=== PATIENT | female | born 1955 ===

== ENCOUNTER 2018-10-15 07:02 | Emergency (ER) | payer BC, MEDICARE, OTHER ==
--- NOTE | 2018-10-15 07:38 | UC ---
General HPI - HPI Summary HPI Summary: Pt present to with 3 weeks progressive poly arthralgia. Pt states discomfort primarily in left ankle but also in knees and right hip. No fall, no trauma. LLE with increased swelling and mild erythema. No fever chills. No rash. Pt taking ibuprofen 600mg with short term relief. Pt elevated LE which help swelling No travel no know tick bite. Pt states she has seen her PCP Dr. Salcido several times for this - has had blood work - unknown what tested but does say lyme neg Pt also reports she was put on unknown medication for gout ( sounds like pred taper as describes a 5-6 days tapering dose.) Pt states her PCP has done xrays and an ultrasound (2 weeks ago) but leg getting more swollen and painful. Pt saw PCP on Thu - she is not on vacation for 10 days so came to medications reviewed - History of Current Complaint Chief Complaint: UCLowerExtremity Stated Complaint: JOINT PAIN Time Seen by Provider: 10/15/18 07:28 Pain Intensity: 8 - Allergy/Home Medications Allergies/Adverse Reactions: Allergies Allergy/AdvReac Type Severity Reaction Status Date / Time ampicillin Allergy Shakes Verified 10/15/18 07:19 Home Medications: Home Medications FLUoxetine CAP* [PROzac CAP*] 10 mg PO DAILY 10/15/18 [History Confirmed ] Levothyroxine TAB* [Synthroid TAB*] 25 mcg PO 0800 10/15/18 [History Confirmed 10/15/18] [place]cano Carbonate TAB* 300 mg PO DAILY 10/15/18 [History Confirmed 10/15/18] Zolpidem TAB* [Ambien TAB*] 5 mg PO BEDTIME PRN 10/15/18 [History Confirmed ] PMH/Surg Hx/FS Hx/Imm Hx Previously Healthy: Yes Psychological History: Bipolar Disorder - Surgical History Surgical History: None - Family History Known Family History: Positive: Non-Contributory - Social History Occupation: Retired Lives: With Family Alcohol Use: None Substance Use Type: None Smoking Status (MU): Never Smoked Tobacco Review of Systems All Other Systems Reviewed And Are Negative: Yes Constitutional: Negative: Fatigue Skin: Positive: Other - swelling LLE Musculoskeletal: Positive: Arthralgia Is Patient Immunocompromised?: No Physical Exam - Summary Physical Exam Summary: Vital Signs Reviewed: Yes A+Ox3, no distress, ambulatory with slight limp Eyes: Conjunctiva Clear, PATRICIA. EOM intact and full ENT: Hearing grossly normal TM x 2 clear, mmoist, uvula midline, no exudate, no erythema Neck: Positive: Supple Respiratory: Positive: No respiratory distress, No accessory muscle use + CTA throughout no w/r Cardiovascular: RRR nl s1, s2 no m/r CBT <2 sec + dP, PT + 2+ edema LLE midcalf to midfoot abd soft + BS nt/nd no guarding, no distension Musculoskeletal Exam: BROWN x 4 without difficulty Strength Intact, ROM Intact + SLE + flex/ext knee, ankle great toe + TTP with palp medial aspect left ankle and base 1st MT Neurological: Positive: Alert, + sensation throughout ambulatory with slight limp + grosss sensation throughout b/l LE Psychological: Positive: Normal Response To Family Skin: Positive: LLE midcalf to mid foot + edema, mild warmth, mild erythema no lesios Triage Information Reviewed: Yes Vital Signs: Initial Vital Signs Temp 98.4 F 10/15/18 07:09 Pulse 63 10/15/18 07:09 Resp 16 10/15/18 07:09 BP 177/81 10/15/18 07:09 Pulse Ox 98 10/15/18 07:09 Course/Dx - Course Course Of Treatment: Patient presents to urgent care with three-way progressive poly-articular arthralgias. Patient has seen her PCP several times for this. Patient reports she's had recommended imaging studies without a clear diagnosis. Patient was put on medication for treatment of gout. Patient has not nobody uric acid level. Patient did saline level is negative. Patient states he has not checked a lithium level. Patient states her left lower extremity continues to be swollen and painful. Patient states it seems is getting worse. Patient takes ibuprofen was short-term relief. Patient did take this morning. Patient states her doctors out of town so she came here. When I asked why she was here she said to "make it go away. I'm unable to access any lab work or imaging studies were done as it was also with a [employer] system and not accessible to me today. I discussed with patient the limitations of urgent care. Recommend patient to emergency department for further evaluation to likely the lab work as well as potentially imaging studies. Patient states understanding agreement with plan. Spoke KRISTY Mcadams in the ED who is aware patient will be coming by private vehicle. Of note, patient's initial blood pressure was very high at years. Patient does not have a history of hypertension or and is on medication. A repeat prior to discharge was markedly improved but still mildly elevated. Patient isn't some discomfort. Recommend patient follow-up with primary care regarding her blood pressure as well as her evolving joint pain. Patient states understanding of plan. Patient will drive herself to the emergency department. Advised to pullover, dial 911 with any changes. - Diagnoses Provider Diagnosis: Joint pain, Leg edema, left Discharge - Sign-Out/Discharge Documenting (check all that apply): Patient Departure All imaging exams completed and their final reports reviewed: No Studies - Discharge Plan Condition: Stable Disposition: HOME-RECOMMEND TO ED Patient Education Materials: Arthralgia (ED), Swollen Joint (ED) Referrals: No Primary Care Phys,NOPCP [Primary Care Provider] - Additional Instructions: The doctor that evaluated you today thinks that you need additional testing that can be completed the emergency department. It is recommended that you go directly to emergency department for further evaluation. This evaluation may include blood work or imaging. This testing will be directed and decided by the provider that evaluate you at the emergency department. If pain becomes worse, you feel lightheaded, you have uncontrolled vomiting, or you have any other concerns while you are being driven to emergency department as recommended to pullover and contact 911. - Billing Disposition and Condition Condition: STABLE Disposition: Home-Recommend to ED
[2018-10-15 07:44] VITALS: BP 145/80
== END 2018-10-15 07:47 | disposition home health service (06) ==
LOC: UCEAST 07:02
DX: M25.572 Pain in left ankle and joints of left foot (principal); R60.9 Edema, unspecified; F31.9 Bipolar disorder, unspecified
CPT/HCPCS: 99202; G0463

== ENCOUNTER 2018-10-15 08:06 | Emergency (ER) | payer MEDICARE, OTHER ==
--- NOTE | 2018-10-15 08:26 | ED ---
Lower Extremity - HPI Summary HPI Summary: A 63 y/o female presents to [facility] with a chief complaint of intermittent left foot, knee and hip pain for the past 3 weeks. She also has right sided abdominal pain. At triage she rated her pain as an 8/10 in severity. Swelling, edema and redness noted on left leg and foot. She denies any fever. She notes that she has a Hx of bipolar and is taking 750mg [place]. She went to [facility] and was sent to the ED for further workup. - History of Current Complaint Chief Complaint: EDGeneral Stated Complaint: SWELLING IN LEFT LEG/JOINT PROBLEMS PER PT Time Seen by Provider: 10/15/18 08:17 Hx Obtained From: Patient Mechanism Of Injury: Unknown Onset of Pain: Days, Prior to Arrival Onset/Duration: Weeks Severity Initially: Severe Severity Currently: Severe Pain Intensity: 8 Pain Scale Used: 0-10 Numeric Timing: Intermittent Location: Is Discrete @ - left hip, foot and knee today Character Of Pain: Unable To Describe Associated Signs And Symptoms: Positive: Swelling, Redness, Abdominal Pain. Negative: Fever Aggravating Factor(s): Nothing Alleviating Factor(s): Nothing - Allergies/Home Medications Allergies/Adverse Reactions: Allergies Allergy/AdvReac Type Severity Reaction Status Date / Time ampicillin Allergy Shakes Verified 10/15/18 08:12 PMH/Surg Hx/FS Hx/Imm Hx Endocrine/Hematology History: Reports: Hx Thyroid Disease Psychiatric History: Reports: Hx Bipolar Disorder Infectious Disease History: No Infectious Disease History: Denies: Traveled Outside the [place] in Last 30 Days - Social History Alcohol Use: None Substance Use Type: Reports: None Smoking Status (MU): Never Smoked Tobacco Review of Systems Negative: Fever Positive: Abdominal Pain - right sided Positive: Arthralgia - left hip and knee, Myalgia - left foot, Edema - left foot Positive: Other - positive: redness left foot All Other Systems Reviewed And Are Negative: Yes Physical Exam - Summary Physical Exam Summary: Appearance: Well appearing, no pain distress Skin: warm, dry, reflects adequate perfusion Head/face: normal Eyes: EOMI, PATRICIA ENT: normal Neck: supple, non-tender Respiratory: CTA, breath sounds present Cardiovascular: RRR, pulses symmetrical Abdomen: non-tender, soft Musculoskeletal: swelling lf leg/foot with erythema. Neuro: normal, sensory motor intact, A&Ox3 Triage Information Reviewed: Yes Vital Signs On Initial Exam: Initial Vitals Temp Pulse Resp BP Pulse Ox 98.1 F 62 16 177/82 97 10/15/18 08:08 10/15/18 08:08 10/15/18 08:08 10/15/18 08:08 10/15/18 08:08 Vital Signs Reviewed: Yes Diagnostics - Vital Signs Vital Signs Temp Pulse Resp BP Pulse Ox 10/15/18 08:08 98.1 F 62 16 177/82 97 - Laboratory Lab Statement: Any lab studies that have been ordered have been reviewed, and results considered in the medical decision making process. - Radiology lower extremity X-ray Radiology Interpretation Completed By: Radiologist Summary of Radiographic Findings: NO ACUTE OSSEOUS INJURY. IF SYMPTOMS PERSIST, RECOMMEND REPEAT IMAGING. ED physician has reviewed this imaging report. foot x-ray Radiology Interpretation Completed By: Radiologist Summary of Radiographic Findings: OSTEOARTHRITIS. NO ACUTE OSSEOUS INJURY. IF SYMPTOMS PERSIST, RECOMMEND REPEAT IMAGING. ED physician has reviewed this imaging report. - Ultrasound No standard instances Ultrasound Interpretation Completed By: Radiologist Summary of Ultrasound Findings: Venous doppler study impression: NO LEFT LOWER EXTREMITY DEEP VEIN THROMBOSIS. CAPPS'S CYST. ED physician has reviewed this imaging report. Re-Evaluation - Re-Evaluation First Eval Re-Evaluation Time: 10:23 Change: Unchanged Comment: Discussed results and plan for DC Lower Extremity Course/Dx - Course Course Of Treatment: A 63 y/o female presents to [facility] with a chief complaint of intermittent left foot, knee and hip pain for the past 3 weeks. Swelling, edema and redness noted on left ankle and foot. The physical exam was unremarkable. Lower extremity x-ray impression: NO ACUTE OSSEOUS INJURY. IF SYMPTOMS PERSIST, RECOMMEND REPEAT IMAGING. Venous doppler study impression: NO LEFT LOWER EXTREMITY DEEP VEIN THROMBOSIS. CAPPS'S CYST. Foot x-ray impression : OSTEOARTHRITIS. NO ACUTE OSSEOUS INJURY. IF SYMPTOMS PERSIST, RECOMMEND REPEAT IMAGING. The patient will be discharged with a prescription for Bactrim and follow up with her PCP. The patient is agreeable with this plan. - Diagnoses Provider Diagnoses: Cellulitis of left leg, Capps cyst Discharge - Sign-Out/Discharge Documenting (check all that apply): Patient Departure - DC Patient Received Moderate/Deep Sedation with Procedure: No - Discharge Plan Condition: Stable Disposition: HOME Prescriptions: Sulfamethox/Trimethoprim DS* [Bactrim DS 800/160 TAB*] 1 tab PO BID #20 tab Patient Education Materials: Cellulitis (DC), Bakers Cyst (ED) Referrals: [facility] [Outside] - 3 Days () Additional Instructions: Return to the ED if you experience any new or worsening symptoms. - Billing Disposition and Condition Condition: STABLE Disposition: Home - Attestation Statements Document Initiated by Scribe: Yes Documenting Scribe: Yung Wagner Provider For Whom Scribe is Documenting (Include Credential): Kane Meyers MD Scribe Attestation: Yung Hennessy, scribed for Kane Meyers MD on 10/15/18 at 1052. Scribe Documentation Reviewed: Yes Provider Attestation: The documentation as recorded by the Yung galvan accurately reflects the service I personally performed and the decisions made by Kane lofton MD Status of Scribe Document: Viewed
[2018-10-15 10:32] VITALS: BP 173/90
== END 2018-10-15 10:32 | disposition home or self-care (01) ==
LOC: ED 08:06
DX: L03.116 Cellulitis of left lower limb (principal); M71.22 Synovial cyst of popliteal space [Baker], left knee
CPT/HCPCS: 99283

== ENCOUNTER 2021-02-14 12:10 | Inpatient (IN) ==
[2021-02-14 13:36] LABS: Urine Benzodiazepine Screen None Detected (None Detect); Urine Cannabinoids Screen None Detected (None Detect); Urine Opiates Screen None Detected (None Detect)
[2021-02-14 14:24] LABS: ABS Basophils 0.1 10^3/ul (0-0.2); ABS Eosinophils 0.1 10^3/ul (0-0.6); ABS Lymphocytes 1.4 10^3/ul (1.0-4.8); ABS Monocytes 0.3 10^3/ul (0-0.8); ABS Neutrophils 3.3 10^3/ul (1.5-7.7); Eosinophil % 1.9 %; Hematocrit 34 % (35-47); Hemoglobin 11.5 g/dL (12.0-16.0); Lymphocyte % 26.2 %; Mean Corpuscular HGB Conc 33 g/dL (31-36); Mean Corpuscular Hemoglobin 28 pg (27-31); Mean Corpuscular Volume 85 fL (80-97); Mean Platelet Volume 8.6 fL (7.4-10.4); Platelet Count 227 10^3/uL (150-450); Red Blood Count 4.07 10^6 /uL (3.70-4.87); Red Cell Distribution Width 14 % (10-15); White Blood Count 5.2 10^3/uL (3.5-10.8)
[2021-02-14 14:34] LABS: ALT 47 U/L (7-52); AST 34 U/L (13-39); Albumin 4.2 g/dL (3.2-5.2); Albumin/Globulin Ratio 1.5 (1-3); Alkaline Phosphatase 59 U/L (35-149); Anion Gap 5 mmol/L (2-11); Blood Urea Nitrogen 18 mg/dL (6-24); CO2 Carbon Dioxide 28 mmol/L (22-32); Calcium 9.4 mg/dL (8.6-10.3); Chloride 108 mmol/L (101-111); Globulin 2.8 g/dL (2-4); Glucose 155 mg/dL (70-100); Sodium 141 mmol/L (135-145)
[2021-02-14 14:36] LABS: Alcohol, S < 13 mg/dL (<13); Salicylate < 2.50 mg/dL (<30)
[2021-02-14 14:37] LABS: Acetaminophen < 15 mcg/mL
[2021-02-14 14:49] LABS: TSH Ultra Thyroid Stim Horm 2.13 mcIU/mL (0.34-5.60)
[2021-02-14 20:22] LABS: Rapid COVID-19 Molecular Undetected (Undetected)
[2021-02-14] MEDS ORDERED: Al Hydrox/Mg Hydrox/Simet LIQ 30 ML UDC PO PRN (21:23)
[2021-02-15] MEDS: Vitamin THERAPEUTIC TAB PO SCH (09:21)
[2021-02-15] MEDS ORDERED: LORazepam 2 mg VIAL 1 ml ONE (16:31)
[2021-02-15] MEDS ORDERED: LORazepam 2 mg VIAL 1 ml IM ONE (18:26)
[2021-02-16] MEDS: Vitamin THERAPEUTIC TAB PO SCH (09:02)
[2021-02-17] MEDS: Vitamin THERAPEUTIC TAB PO SCH (07:47)
[2021-02-17] MEDS ORDERED: OLANzapine 5 mg TAB*ODT ONE (18:29)
[2021-02-18 08:44] LABS: HDL Cholesterol 58.5 mg/dL
[2021-02-18] MEDS: Vitamin THERAPEUTIC TAB PO SCH ×2 (08:45→09:01)
[2021-02-19] MEDS: Vitamin THERAPEUTIC TAB PO SCH (07:57)
[2021-02-20] MEDS: Vitamin THERAPEUTIC TAB PO SCH (09:11)
[2021-02-21 07:41] LABS: Calcium 9.8 mg/dL (8.6-10.3); Potassium 3.9 mmol/L (3.5-5.0)
[2021-02-21] MEDS: Vitamin THERAPEUTIC TAB PO SCH (07:52)
[2021-02-22] MEDS: Vitamin THERAPEUTIC TAB PO SCH (09:53)
[2021-02-23] MEDS: Vitamin THERAPEUTIC TAB PO SCH (08:27)
[2021-02-24] MEDS: Vitamin THERAPEUTIC TAB PO SCH (09:50)
[2021-02-25] MEDS: Vitamin THERAPEUTIC TAB PO SCH (08:46)
[2021-02-26] MEDS: Vitamin THERAPEUTIC TAB PO SCH (09:53)
[2021-02-27] MEDS: Vitamin THERAPEUTIC TAB PO SCH (07:58)
[2021-02-28] MEDS: Vitamin THERAPEUTIC TAB PO SCH (09:35)
[2021-03-01] MEDS: Vitamin THERAPEUTIC TAB PO SCH (09:51)
[2021-03-02] MEDS: Vitamin THERAPEUTIC TAB PO SCH (09:06)
[2021-03-03] MEDS: Vitamin THERAPEUTIC TAB PO SCH (07:45)
[2021-03-04] MEDS: Vitamin THERAPEUTIC TAB PO SCH (09:18)
[2021-03-05] MEDS: Vitamin THERAPEUTIC TAB PO SCH (10:14)
[2021-03-05 10:41] VITALS: BP 122/78
[2021-03-05 11:20] LABS: Rapid COVID-19 Molecular Undetected (Undetected)
== END 2021-03-05 13:45 | disposition home or self-care (01) | DRG 885 ==
LOC: ED 12:10 → BSU 22:12
PROVIDERS: ADMIT Psychiatry & Neurology Psychiatry; ATTEND Psychiatry & Neurology Psychiatry